=== PATIENT | female | born 1950 | race Caucasian/White ===

== ENCOUNTER 2016-12-06 07:00 | Inpatient (IN) | payer MEDICARE, BC ==
[~2016-12-06 07:00] MED LIST: Buffered Lidocaine 1% SYRIN* 3 ML/SYR SYRINGE INTRADERM ONE
[2016-12-06] MEDS ORDERED: Clindamycin 900 MG IVPREMIX(* 900 MG/50 ML SDV IV ONE (07:02)
[2016-12-06] MEDS ORDERED: ceFAZolin 2 GM PREMIX(*) 2 GM/50 ML BAG IVPB ONE (07:51)
[2016-12-06] MEDS ORDERED: Bupivacaine 0.25% EPI 200,000* 30 ML SDV ONE (08:12)
[2016-12-06] MEDS ORDERED: Bupivacaine 0.5% SDV PF* 30 ML VIAL ONE (08:13)
[2016-12-06] MEDS ORDERED: Midazolam* 1 MG/ML 5 ML VIAL (5 MG) ONE (08:14)
[2016-12-06] MEDS ORDERED: fentaNYL* 50 MCG/ML 2 ML VIAL (100 MCG VIAL) ONE ×2 (08:43→09:54)
[2016-12-06] MEDS ORDERED: fentaNYL* 50 MCG/ML 2 ML VIAL (100 MCG VIAL) IV PRN (09:13)
[2016-12-06] MEDS ORDERED: HYDROmorphone* 1 MG/ML 1 ML SYR IV PRN (09:13)
[2016-12-06] MEDS ORDERED: HYDROcodone/ACETAMIN 5-325 MG* 1 TAB PO PRN ×2 (09:13→09:47)
[2016-12-06] MEDS ORDERED: DiMENhydriNATE IV* 50 MG/ML VIAL IV PUSH PRN ×2 (09:13→09:47)
[2016-12-06] MEDS ORDERED: Ondansetron INJ* 2 MG/ML VIAL IV PRN ×2 (09:13→09:47)
[2016-12-06] MEDS ORDERED: oxyCODONE TAB* 5 MG TAB PO PRN ×2 (09:13→09:47)
[2016-12-06] MEDS ORDERED: oxyCODONE/Acetamin 5/325 MG* TAB PO PRN (09:47)
[2016-12-06] MEDS ORDERED: diPHENhydraMINE IV* 50 MG/ML 1 ml VIAL (BENADRYL) IV PRN (09:47)
[2016-12-06] MEDS ORDERED: Lactated Ringers 500 ml BAG* 500 ML IV PRN (09:47)
[2016-12-06] MEDS ORDERED: LACTULOSE* 30 ML UDC PO PRN (11:07)
[2016-12-06] MEDS ORDERED: Acetaminophen TAB* 325 MG PO PRN (11:07)
[2016-12-06] MEDS ORDERED: Bisacodyl SUPP* 10 MG SUPP PR PRN (11:07)
[2016-12-06] MEDS ORDERED: Polyethylene Glycol 3350* 17 GM PACKET PO PRN (11:07)
[2016-12-06] MEDS ORDERED: ceFAZolin 1 GM in Dextrose (*) 1 GM/50 ML BAG IVPB SCH (12:00)
--- NOTE | 2016-12-06 12:14 | RAD ---
HISTORY: Status post medial right knee arthroplasty COMPARISONS: November 27, 2009 VIEWS: 3, Frontal and lateral views of the right knee FINDINGS: BONE DENSITY: Normal. BONES: The patient is status post medial right knee arthroplasty. There is no hardware failure or osteolysis. JOINTS: There is no arthropathy. ALIGNMENT: There is no dislocation. SOFT TISSUES: There is post surgical changes to the soft tissue OTHER FINDINGS: None. IMPRESSION: STATUS POST MEDIAL RIGHT KNEE ARTHROPLASTY
[2016-12-06] MEDS ORDERED: Ketorolac INJ* 15 MG/ML 1 ML VIAL IV PUSH PRN (12:23)
[2016-12-06] MEDS: OBEPIDURAL* 250 ML EPIDURAL SCH ×3 (13:25→17:03)
[2016-12-06] MEDS: D5W 1/2 NS 1000 ML BAG* 1,000 ML IV SCH (13:42)
[2016-12-06] MEDS: ceFAZolin 1 GM in Dextrose (*) 1 GM/50 ML BAG IVPB SCH (16:38)
[2016-12-06] MEDS ORDERED: Warfarin TAB(*) 6 MG PO ONE (17:00)
[2016-12-06] MEDS: Docusate CAP* 100 MG PO SCH (20:30)
[2016-12-06] MEDS: Magnesium Hydroxide LIQ* 30 ML UDC PO SCH (20:30)
[2016-12-07] MEDS: D5W 1/2 NS 1000 ML BAG* 1,000 ML IV SCH ×3 (00:11→22:35)
[2016-12-07] MEDS: ceFAZolin 1 GM in Dextrose (*) 1 GM/50 ML BAG IVPB SCH ×2 (00:13→07:33)
--- NOTE | 2016-12-07 05:11 | OP ---
DATE OF OPERATION: 12/06/16 - ROOM #341 DATE OF : 46 SURGEON: Itz Zaidi MD WELDER FITTER: SYBIL Clarke ANESTHESIOLOGIST: Ubaldo Mcwilliams MD ANESTHESIA: Epidural and sedation. PREOPERATIVE DIAGNOSIS: Osteoarthritis, right knee. POSTOPERATIVE DIAGNOSIS: Osteoarthritis, right knee. OPERATIVE PROCEDURE: Right knee medial compartment arthroplasty. ESTIMATED BLOOD LOSS: Negligible. COMPLICATIONS: None. SUMMARY: Ms. Cazares is a 66-year-old female who has been having continued troubles with right knee pain. She had very specific wear on the inner side of the right knee and this is where all of her pain was. She had been treated conservatively with antiinflammatories, physical therapy, bracing, and injections and while these had helped a little more in the beginning, she reports she has been more limited in her activities and what she can do. We talked about a total knee versus a partial knee and after talking about a partial knee arthroplasty she was very willing to try it. Risks of surgery such as infection, scar formation, stiffness, DVT, pulmonary embolism, hardware failure, continued pain, and the need for revision to a total knee were discussed and she had wished to proceed. DESCRIPTION OF PROCEDURE: The patient was brought to the OR and epidural anesthesia was established. Tourniquet was placed over the proximal right thigh and was used during the case. Total tourniquet time would be 75 minutes. Right knee was prepped and then draped. Skin over the incisional area was infiltrated using 0.25% Marcaine with epinephrine and additional 10 mL would be injected within the knee. Esmarch was used to exsanguinate the leg and the tourniquet was raised. Incision just medial of midline was made beginning at the superior pole of the patella and carried down towards the tibial tubercle. Subcutaneous tissues were sharply divided and extensor mechanism was nicely exposed. A sharp parapatellar arthrotomy was made. Portion of the fat pad was sharply excised. So that I had better exposure to the proximal tibia and anterior horn of the meniscus was also sharply incised. Soft tissues were sharply elevated from the medial side of the tibial and this would allow for excellent external rotation and nice exposure of the proximal tibia. Tio was used to hang on to the meniscus and then the meniscus was sharply excised. Posterior condyle of the femur was measured and approximately a 6 mm cut was taken. This improved exposure for the proximal tibia. A sizer was used and a small sat very nicely. Bur was then used to make a 4 mm recess for the polyethylene. Going back and forth to make sure that I did not take too much and that the size was proper. I thought I had a nice recess set up. Femur was then sized and a 48 seemed to fit best. Femur was outlined and again the bur was used to resect approximately 4 mm of bone. Trial was again placed and then the K-wires were placed to hold it in place so that the pilot boat captain hole could easily be made. Saw was then used to connect the hole, so that the keel could be seated nicely. Trial instrumentation was placed and with flexion, the tibial component did ride up a little bit anteriorly. A little bit more bone was taken posteriorly. So that we would not get into troubles with flexion and this was repeated several times until she finally sat nicely with full flexion. Her flexion was actually quite good as she easily flexed well past 135 degrees where I could bring her heel nearly all the way back to her buttock. Spurs were also taken down from the medial side of the tibia and femur. Patelloplasty was also performed using a saw so that I had better access to the front of the medial condyle and this way the edge of the patella did not hit the metal of the condyle. Once we were sitting nicely and had good motion, the knee was copiously pulse lavaged. Cement was being prepared. Tibia and femur were both cemented into place. Excess cement was removed and cement was allowed to harden. Knee was then searched for excess cement and a little bit was found. Knee was again copiously pulse lavaged. She had the same great motion, locking out fully and could be flexed back without any restriction. Tourniquet was let down. No significant bleeding was encountered. Arthrotomy was repaired using interrupted #1 Vicryl sutures. Subcutaneous tissues were reapproximated with 2-0 Vicryl, skin was closed using jules. Sterile dressing was applied in the OR. The patient was then awake and stable on transfer to the recovery room. [id number]/[facility] #: [id number] MTDD
[2016-12-07] MEDS ORDERED: diPHENhydraMINE IV* 50 MG/ML 1 ml VIAL (BENADRYL) IV PRN (06:00)
[2016-12-07] MEDS ORDERED: oxyCODONE TAB* 5 MG TAB PO PRN ×2 (06:00)
[2016-12-07] MEDS ORDERED: Ondansetron TAB* 4 MG PO PRN (06:00)
[2016-12-07] MEDS: Magnesium Hydroxide LIQ* 30 ML UDC PO SCH ×2 (07:26→21:14)
[2016-12-07 07:28] LABS: Hematocrit 31 % (35-47); Hemoglobin 10.4 g/dl (12.0-16.0)
[2016-12-07] MEDS: Vitamin THERAPEUTIC TAB PO SCH (07:28)
[2016-12-07] MEDS: Docusate CAP* 100 MG PO SCH ×2 (07:33→21:08)
[2016-12-07] MEDS: Ondansetron INJ* 2 MG/ML VIAL IV PRN ×2 (07:38→17:11)
--- NOTE | 2016-12-07 09:07 | PN ---
Progress Note - Progress Note SOAP: Subjective: []Patient seen OOB in chair after finishing with PT/OT. Still c/o nausea. "I havent been able to keep anything down since surgery". States that she used IV Tylenol for pain after her hip replacement and did well, however she understands her knee incision may be more painful baseline than the hip incision. Disappointed that she won't be going home today. Objective: [] Vital Signs Temp 98.8 F 12/07/16 07:30 Pulse 98 12/07/16 07:30 Resp 20 12/07/16 07:33 BP 130/49 12/07/16 07:30 Pulse Ox 100 12/07/16 07:30 Intake & Output 12/06/16 12/07/16 12/07/16 18:59 06:59 18:59 Intake Total 2460 2664 Output Total 125 2140 Balance 2335 524 Weight 121 lb Intake: IV Fluids 2100 1534 D5W 1/2 NS 1534 lr 2100 IVPB 50 ABX - CEFAZOLIN 50 Oral 360 1080 Output: Urine 125 1900 Emesis 240 Other: # Bowel Movements 0 Laboratory Results - last 24 hr 12/07/16 12/07/16 06:19 06:20 Hgb 10.4 L Hct 31 L INR (Anticoag Therapy) 1.10 Right knee dressing is clean/dry and intact calf non tender and soft +DF/PF right foot neuro intact distally Assessment: []s/p Right medial partial knee arthroplasty POD #1 Plan: []PT/OT WBAT Zofran for nausea Coumadin with heparin bridge. 8 mg today decrease narcotics pain medications if able, added IV Tylenol q 6h prn Will re evaluate tomorrow and if stable for discharge may consider
[2016-12-07] MEDS ORDERED: Acetaminophen IV 1GM/100ML * 1,000 MG in PREMIX* 0 ML IVPB PRN (10:01)
[2016-12-07] MEDS: Morphine INJ* 10 MG/ML 1 ML SYRINGE IV PRN ×2 (11:26→13:37)
[2016-12-07] MEDS: Heparin VIAL(*) 5000 UNITS/ML VIAL (FIVE THOUSAND) SUBCUT SCH ×2 (11:28→21:09)
[2016-12-07] MEDS ORDERED: Ketorolac INJ* 30 MG/ML 1 ML VIAL ONE (14:40)
[2016-12-07] MEDS ORDERED: HYDROcodone/ACETAMIN 5-325 MG* 1 TAB ONE (14:40)
[2016-12-07] MEDS ORDERED: Ketorolac INJ* 30 MG/ML 1 ML VIAL IV PRN (14:44)
[2016-12-07] MEDS ORDERED: Warfarin TAB(*) 4 MG PO ONE (17:00)
[2016-12-07] MEDS: HYDROcodone/ACETAMIN 5-325 MG* 1 TAB PO PRN (21:37)
[2016-12-08] MEDS: HYDROcodone/ACETAMIN 5-325 MG* 1 TAB PO PRN ×3 (03:19→14:07)
[2016-12-08 09:15] LABS: Hematocrit 31 % (35-47); Hemoglobin 10.3 g/dl (12.0-16.0)
[2016-12-08] MEDS: Vitamin THERAPEUTIC TAB PO SCH (09:26)
[2016-12-08] MEDS: Docusate CAP* 100 MG PO SCH (09:27)
[2016-12-08] MEDS: Magnesium Hydroxide LIQ* 30 ML UDC PO SCH (09:27)
[2016-12-08] MEDS: Heparin VIAL(*) 5000 UNITS/ML VIAL (FIVE THOUSAND) SUBCUT SCH (09:30)
[2016-12-08 12:35] VITALS: BP 141/60
[2016-12-08] MEDS ORDERED: Apixaban* 2.5 MG TAB PO SCH (21:00)
--- NOTE | 2016-12-09 03:03 | DS ---
DISCHARGE SUMMARY: DATE OF ADMISSION: 12/06/16 DATE OF DISCHARGE: 12/08/16 ATTENDING PHYSICIAN: Itz Zaidi MD ADMISSION DIAGNOSIS: Medial compartment, osteoarthritis right knee. DISCHARGE DIAGNOSIS: Medial compartment, osteoarthritis right knee. SURGERY PERFORMED: The right medial compartment arthroplasty. HOSPITAL COURSE: The patient is a 66-year-old female who had ongoing problems with right knee pain. She was followed by Dr. Zaidi in the office, where multiple treatments including anti-inflammatories, physical therapy, bracing and injections all were unsuccessful in alleviating her knee pain, mcfp. The patient was given an option of a total knee arthroplasty versus a medial compartment arthroplasty and elected to proceed with a partial knee arthroplasty. She was taken to the operating room under the care of Dr. Itz Zaidi for the aforementioned procedure on the date of 12/06/16. She tolerated the procedure well and left the operating room in stable condition. Postoperatively, she had some mild difficulties with nausea, from the pain medications. Her oral pain medications were changed to hydrocodone, which she was able to tolerate. She was placed on Coumadin postoperatively with heparin bridge for her DVT prophylaxis and was found to be therapeutic on the Coumadin with an INR of 2.25 on 12/08/16. The patient, however, did not want to be discharged on the Coumadin medication because she did not want to have biweekly blood draws. I did discuss this with Dr. Zaidi who would like her to go home on Eliquis 2.5 mg p.o. b.i.d. I had given her a 2- week supply with 1 refill. The patient was anxious to be discharged to home. She mastered her physical therapy and occupational therapy goals. Postoperative day #2 and is found to be orthopedically and medically stable for discharge home today. CONDITION ON DISCHARGE: The patient is afebrile. Her vital signs are stable. Her right knee dressing is dry and intact. Her calf is soft and nontender. She has dorsiflexion and plantar flexion of her ankle. Her gross neurovascular status is intact. PLAN/RECOMMENDATIONS: Discharge to home 12/08/16. Prescriptions of hydrocodone 5/325 mg #90, no refills, 1 to 2 tabs p.o. q.4 hours p.r.n. pain and Eliquis 2.5 mg p.o. b.i.d. #14, 1 refill, both sent to her pharmacy, [facility]. We recommend a followup in roughly 10 to 14 days in the office. She may shower in 1 day, avoiding bath water, hot tub, and swimming pool water. Instructions to start the Eliquis, blood thinner on Tuesday, 12/11, was also discussed with the patient and she understands. SYBIL GÓMEZ [id number]/[facility] #: [id number] MTDSweetie
== END 2016-12-08 14:40 | disposition home or self-care (01) | DRG 470 ==
LOC: AA 07:00 → SSU 13:15
PROVIDERS: ADMIT Orthopaedic Surgery; ATTEND Orthopaedic Surgery
PROC: 0SRC0L9 Replacement of Right Knee Joint with Medial Unicondylar Synthetic Substitute, Cemented, Open Approach (ICD-10-PCS; principal; 2016-12-06 08:15)
DX: M17.0 Bilateral primary osteoarthritis of knee (principal); B19.20 Unspecified viral hepatitis C without hepatic coma; K21.9 Gastro-esophageal reflux disease without esophagitis; Z96.641 Presence of right artificial hip joint; R11.0 Nausea; T39.315A Adverse effect of propionic acid derivatives, initial encounter; Z88.8 Allergy status to other drugs, medicaments and biological substances; Z88.0 Allergy status to penicillin; Z98.51 Tubal ligation status; Z83.3 Family history of diabetes mellitus; Z82.49 Family history of ischemic heart disease and other diseases of the circulatory system
CPT/HCPCS: 36415; 85014; 85018; 85610; 88304; 88311; A9270-GY; C1776; J0690; J1644; J1885; J2250; J2270; J2405; J3010

== ENCOUNTER 2023-06-14 12:45 | Inpatient (IN) ==
[2023-08-18] MEDS ORDERED: Buffered Lidocaine 1% SYRIN 1 ml INTRADERM ONE (06:00)
[2023-08-18] MEDS ORDERED: Famotidine IV 10 MG/ML 2 ml VIAL (20 mg) IV ONE (06:00)
[2023-08-18] MEDS ORDERED: Lactated Ringers 1000 ml BAG 1,000 ML IV SCH ×2 (06:00→10:00)
[2023-08-18] MEDS ORDERED: Famotidine IV 10 MG/ML 2 ml VIAL (20 mg) ONE (06:31)
[2023-08-18] MEDS ORDERED: ceFAZolin 2 GM PREMIX 2 GM/50 ML BAG ONE (06:31)
[2023-08-18 06:45] LABS: Rapid COVID-19 Molecular Undetected (Undetected)
[2023-08-18] MEDS ORDERED: Midazolam 2 mg/2 ml VIAL 1 mg/ml 2 ml VIAL (2 mg) ONE (07:06)
[2023-08-18] MEDS ORDERED: fentaNYL 100 mcg/2 ml 50 MCG/ML VIAL ONE (07:06)
[2023-08-18] MEDS ORDERED: ROPIVACAINE 5 MG/ML 30 ML BTL (0.5%) ONE (07:21)
[2023-08-18] MEDS ORDERED: Bupivacaine-MPF SPINAL 7.5 MG/ML - 2ML AMP ONE (07:38)
[2023-08-18] MEDS ORDERED: Ondansetron 4 mg VIAL 2 MG/ML 2 ml VIAL IV PRN ×2 (07:49→09:55)
[2023-08-18] MEDS ORDERED: fentaNYL 100 mcg/2 ml 50 MCG/ML VIAL IV PRN (07:49)
[2023-08-18] MEDS ORDERED: Naloxone 0.4 mg VIAL 0.4 mg/ml 1 ml VIAL IV PRN (07:49)
[2023-08-18] MEDS ORDERED: Tranexamic Acid 1,000 MG/10 ML SDV ONE (08:15)
[2023-08-18] MEDS ORDERED: Dexamethasone IV 4 MG/ML VIAL 1 ml VIAL ONE (08:23)
[2023-08-18] MEDS ORDERED: Acetaminophen IV 1 GM/100ML 0 MG/0 ML BAG IV ONE (09:31)
[2023-08-18] MEDS ORDERED: Acetaminophen IV 1 GM/100ML 1,000 MG/100 ML BAG IV ONE (09:35)
[2023-08-18] MEDS ORDERED: Lactulose 30 ml UDC PO PRN (09:55)
[2023-08-18] MEDS ORDERED: Magnesium Hydroxide LIQ 30 ML UDC PO PRN (09:55)
[2023-08-18] MEDS ORDERED: Ondansetron ODT 4 mg TAB 4 MG TAB PO PRN (09:55)
[2023-08-18] MEDS ORDERED: Morphine 2 MG/ML SYRINGE IV PRN (09:55)
[2023-08-18 14:39] VITALS: BP 145/76
[2023-08-18] MEDS ORDERED: ceFAZolin 1 GM ADVAN 1 GM in NS 0.9% 50 ML 50 ML IVPB SCH (15:30)
[2023-08-18] MEDS ORDERED: Magnesium Hydroxide LIQ 30 ML UDC PO SCH (21:00)
[2023-08-19] MEDS ORDERED: Vitamin THERAPEUTIC TAB PO SCH (09:00)
== END 2023-08-18 16:30 | disposition home or self-care (01) | DRG 470 ==
LOC: AA 08-18 05:44 → SSU 08-18 09:55
PROVIDERS: ADMIT Orthopaedic Surgery Adult Reconstructive Orthopaedic Surgery; ATTEND Orthopaedic Surgery Adult Reconstructive Orthopaedic Surgery